=== PATIENT | female | born 1945 | race Caucasian/White ===

== ENCOUNTER 2017-05-14 08:48 | Observation (INO) | payer MEDICARE, OTHER ==
[2017-05-10 08:50] LABS: HEMATOCRIT 39.3 % (36.0-48.0); HEMOGLOBIN 13.1 g/dL (12.0-16.0)
[2017-05-10 09:14] LABS: A/G RATIO 1.3 (0.7-1.9); ALBUMIN 3.9 G/DL (3.5-5.0); ALKALINE PHOSPHATASE 59 U/L (45-117); BUN (BLOOD UREA NITROGEN) 17 MG/DL (6-23); CALCIUM, SERUM 9.6 MG/DL (8.5-10.4); CHLORIDE, SERUM 107 MMOL/L (96-112); CO2 (CARBON DIOXIDE) 27 MMOL/L (24-34); CREATININE 0.77 MG/DL (0.55-1.02); GFR AFRICAN AMERICAN 89 ML/MIN (>=60); GFR NON AFRICAN AMERICAN 77 ML/MIN (>=60); GLUCOSE, SERUM 165 MG/DL (60-99); POTASSIUM, SERUM 4.8 MMOL/L (3.5-5.3); SGOT(AST) 23 U/L (5-40); SGPT(ALT) 35 U/L (5-65); SODIUM, SERUM 142 MMOL/L (135-148); TOTAL BILIRUBIN 0.4 MG/DL (0-1.2); TOTAL PROTEIN 6.9 G/DL (6.0-8.5)
--- NOTE | ~2017-05-14 | OP ---
Record Of Operation [facility] [address] [place]. [address] NAME: LORENE CARIAS : 43 STATUS : DIS IN PAT#: [id number] AGE: 72 ADM/REG DATE : 05/14/17 MR#: [id number] REPORT SERV DATE: 05/17/17 DICTATED BY: JAI GAN DATE: 05/14/17 REPORT STATUS : Draft TRANSCRIBED BY: MODL DATE: 05/14/17 DATE OF PROCEDURE: 05/14/2017 PREOPERATIVE DIAGNOSIS: Compressive uninodular goiter. POSTOPERATIVE DIAGNOSIS: Compressive uninodular goiter. PROCEDURE: Left hemithyroidectomy. SURGEON: Jai Gan M.D. CHIEF RESIDENT: Randy Duffy MD ANESTHETIC: General. IV FLUIDS: 800 mL of crystalloid. ESTIMATED BLOOD LOSS: 10 mL. COMPLICATIONS: None. COUNTS: Correct. SPECIMEN: Left thyroid. DESCRIPTION OF PROCEDURE: The patient was brought to operating room and placed supine on the operating table. Anesthetic was administered and endotracheal intubation was achieved. A shoulder roll was placed and the patient was placed in the semi-Keys position. Adequate extension of the neck was achieved. Neck was prepped and draped in a standard sterile fashion. A time-out was held. Incision was made approximately 6 cm in the midline of the neck through a natural skin crease. This was taken down the level of the platysma, which was divided with electrocautery and developed subplatysmal flaps both caudad and cephalad. The median raphe was identified and incised. It was carried down to the level of the thyroid. The left strap muscle was grasped and retracted down to the resting tissue was dissected off the posterior aspect of the strap muscles up laterally towards the carotid sheath. Once this was adequately mobilized, the thyroid was dissected initially at the superior pole to isolate the superior pole vessels which were clipped and divided with the LigaSure. The gland was then rotated medially up out of the wound and the dissection of the middle thyroid vein and division was conducted. Next, the inferior thyroid artery was identified and just inferior and posterior to this, the left recurrent laryngeal nerve was identified. Next, the anterior tissue was divided with the LigaSure with the care taken to preserve the left superior and inferior parathyroid glands. This was carried out towards the medial aspect of the posterior thyroid until the isthmus suture was reached, which was then divided with the LigaSure and the specimen passed off. There was adequate hemostasis. The median raphe was reapproximated with 3-0 Vicryl in a running fashion. The platysma was reapproximated with 4-0 Vicryl simple interrupted sutures and the skin was reapproximated Record Of Operation [facility] [id number] [place]. [address] NAME: LORENE CARIAS : 43 STATUS : DIS IN PAT#: [id number] AGE: 72 ADM/REG DATE : 05/14/17 MR#: [id number] REPORT SERV DATE: 05/17/17 DICTATED BY: JAI GAN DATE: 05/14/17 REPORT STATUS : Draft TRANSCRIBED BY: EMELYN DATE: 05/14/17 with 4-0 subcuticular Monocryl. A sterile bandage was applied. The patient was extubated and transferred to the recovery room in stable condition. DICTATED BY: Randy Duffy MD ND/EMELYN Jai Gan M.D. / [id number] CC: Wesley Wynne M.D.
[~2017-05-14 08:48] MED LIST: COZ25 PO; GLUCPH PO; MULTIPLE VIT PO; PRAVAC PO; PROBIOTICS PO; TAMOXIFEN20 M1 PO; TRAZ50 PO; ZOL50 PO; [UNRECOGNIZED DRUG - OTHER] PO
[2017-05-15] MEDS ORDERED: PCET PO (12:48)
== END 2017-05-15 13:40 | disposition home or self-care (01) ==
LOC: SDC 08:48 → 5SO 14:55
PROVIDERS: Specialist
PROC: 0GTG0ZZ Resection of Left Thyroid Gland Lobe, Open Approach (ICD-10-PCS; principal; 2017-05-14 11:30)
DX: D34 Benign neoplasm of thyroid gland (principal); E11.9 Type 2 diabetes mellitus without complications; F41.9 Anxiety disorder, unspecified; M19.90 Unspecified osteoarthritis, unspecified site; Z88.8 Allergy status to other drugs, medicaments and biological substances; Z79.84 Long term (current) use of oral hypoglycemic drugs; Z79.899 Other long term (current) drug therapy; Z98.890 Other specified postprocedural states
CPT/HCPCS: 80053; 82962; 85014; 85018; 88307; 93005; A9270-GY; G0378; J0690; J2250; J2405; J2710; J3010